=== PATIENT | male | born 2000 | race Caucasian/White ===

== ENCOUNTER 2023-10-18 09:40 | Emergency (ER) | payer OTHER ==
[~2023-10-18] VITALS: Ht 180.3 cm; Wt 91.3 kg
[2023-10-18 10:37] VITALS: BP 135/89; PULSE 102; RESP 18; TEMP 98; O2SAT 99
[2023-10-18] MEDS: TETRACAINE HCL 0.5% OPTH(EYE) SOLN 4ML LEFTEYE ONE (10:47)
[2023-10-18] MEDS: FLUORESCEIN SOD OPTH TEST STRIP OP ONE (10:47)
[2023-10-18] MEDS ORDERED: TOB03OS OP (10:49)
== END 2023-10-18 11:13 | disposition home or self-care (01) ==
LOC: ER 09:40
DX: S05.02XA Injury of conjunctiva and corneal abrasion without foreign body, left eye, initial encounter (principal); Z79.899 Other long term (current) drug therapy; X58.XXXA Exposure to other specified factors, initial encounter; Y93.89 Activity, other specified; Y92.89 Other specified places as the place of occurrence of the external cause; Y99.0 Civilian activity done for income or pay